=== PATIENT | female | born 1995 | race Caucasian/White ===

== ENCOUNTER 2022-01-03 13:16 | Emergency (ER) | payer OTHER, SELFPAY ==
[2022-01-03 15:47] VITALS: BP 156/95; PULSE 93; RESP 18; TEMP 37.2; O2SAT 97; BMI 45.7
--- NOTE | 2022-01-03 17:23 | ED.GENADULT ---
HPI - General Adult General Chief complaint: General Medical Stated complaint: depression Time Seen by Provider: 01/03/22 16:59 Source: patient Mode of arrival: ambulatory Limitations: no limitations History of Present Illness HPI narrative: 26 y/o female with history of depression on citalopram for the last 1.5 years who presents to the ER for evaluation of worsening depression for the last few weeks. She states she is starting to feel physical symptoms and manifestations from her depression and stress like extreme fatigue, migraine headache and she is starting to scratch her arms until she bleeds. She lost her mother at age 9 and coped in a similar way with the arm scratching. She says she slept 20 hours yesterday and could not get out of bed. She did not go to work the last 2 days because of her depression. 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 She is not suicidal or homocidal. Denies any auditory hallucination or visual hallucinations. MD complaint: depression Onset (ago): week(s) Location: left and upper extremity Radiation: non-radiation Severity: moderate Severity scale (1-10): 5 Quality: aching and sharp Pain Consistency: intermittent Relieving factors: rest Exacerbating factors: movement Associated symptoms: denies other symptoms Treatments prior to arrival: none Related Data Allergies Allergy/AdvReac Type Severity Reaction Status Date / Time No Known Allergies Allergy Verified 01/03/22 15:47 Review of Systems Review of Systems: Constitutional: No Fever, No Chills ENT/Mouth: No sore throat, No Rhinorrhea, No Swallowing Difficulty Eyes: No Eye Pain, No Swelling, No Redness Cardiovascular: No Chest Pain, No SOB, No Orthopnea, No Edema Respiratory: No Cough, No Sputum, No Wheezing, No dyspnea Gastrointestinal: No Nausea, No Vomiting, No Diarrhea, No abdominal Pain Musculoskeletal: No joint pain, No Myalgias Skin: No Skin Lesions, No rash Neuro: No Weakness, No Numbness, No Dizziness, No Headache Psych: No Anxiety/Panic, No Depression Heme/Lymph: No Bruising, No Lymphadenopathy Endocrine: No Polyuria, No Polydipsia PMFSH Social History Social History Advance Directives: No Advance Directives Information Provided: No Physical Exam ED Vital Signs: Vital Signs - 24 hr 01/03/22 15:47 Temperature 98.9 F Pulse Rate 93 Respiratory Rate 18 Blood Pressure 156/95 H Pulse Oximetry 97 Oxygen Delivery Method Room Air BMI result Body Mass Index 45.7 Course Course Course Narrative: 26-year-old female with history of depression presents to the ER with worsening symptoms for last 3-4 weeks. She is sleeping more and having physical manifestations of depression such as headaches and body aches. She has no suicidal or homicidal ideation. She has a supportive her fiance and younger sister. She is struggling and coping with the fact that she lost both of her parents and has minimal family. She has significant stressors at work. Will have crisis team evaluate her once medically cleared. Will rule out COVID and flu. Reevaluation(s) Reevaluation #1: Lab workup was unremarkable. COVID and flu were negative. 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 The best way for her to get access to a psychiatrist is through the partial program. She is worried about her work. She does have sick days she can use. Given she is low risk anticipate she will not require significant amount of time and partial. This was discussed with the patient and will provide a work note to ease her mind. She follow-up with her PCP as scheduled early January and her therapist tomorrow. She is stable for discharge home. Medical Decision Making Lab Data Result diagrams: 01/03/22 17:21 01/03/22 17:21 Labs: Lab Results 01/03/22 01/03/22 01/03/22 Range/Units 17:20 17:21 17:21 WBC 8.0 (4.8-10.8) X10*3/uL RBC 4.63 (4.20-5.50) X10*6/uL Hgb 13.9 (12.0-16.0) g/dl Hct 42.2 (37.0-47.0) % MCV 91.1 (80.0-98.0) fL MCH 30.0 (27.0-33.0) pg MCHC 32.9 (31.0-35.0) g/dl RDW 13.1 (11.0-16.0) % Plt Count 234 (160-400) X10*3/uL MPV 11.4 (9.4-12.3) fL Immature Gran % (Auto) 0.2 (0.0-0.4) % Neut % (Auto) 66.3 (45-73) % Lymph % (Auto) 23.6 (20-40) % [place] % (Auto) 7.4 (2-11) % Eos % (Auto) 2.0 (0-4) % Baso % (Auto) 0.5 (0-2) % Lymph # (Auto) 1.9 (1.2-4.9) X10*3/uL [place] # (Auto) 0.6 (0.1-1.2) X10*3/uL Eos # (Auto) 0.2 (0.0-0.4) X10*3/uL Baso # (Auto) 0.0 (0.0-0.2) X10*3/uL Abs Immat Gran (auto) 0.02 (0.00-0.03) X10*3/uL Absolute Neuts (auto) 5.3 (2.0-8.3) x10*3/uL Absolute Nucleated RBC 0.000 (0.0-0.012) X10*3/uL Nucleated RBC % (auto) 0.0 (0.0-0.2) /100WBC Sodium 137 (135-145) mmol/L Potassium 3.7 (3.3-5.1) mmol/L Chloride 102 (96-108) mmol/L Carbon Dioxide 23 (22-29) mmol/L Anion Gap 16 (12-20) BUN 10 (9-16) mg/dL Creatinine 0.77 (0.5-1.4) mg/dL Estim Creat Clear Calc 129.5 Estimated GFR > 60 Random Glucose 199 H (60-115) mg/dL Calcium 9.3 (8.4-10.2) mg/dL Total Bilirubin 0.2 (0.0-1.0) mg/dL Direct Bilirubin < 0.2 (0.0-0.5) mg/dL AST 26 (5-31) U/L ALT 22 (0-31) U/L Alkaline Phosphatase 41 (39-117) U/L Total Protein 7.1 (6.5-8.0) g/dL Albumin 4.0 (3.5-5.0) g/dL Lipase 36 (8-78) U/L Urine Color Urine Appearance Urine pH (5.0-9.0) Ur Specific [place] (1.005-1.025) Urine Protein (Neg-Trace) mg/dL Urine Glucose (UA) (Negative) mg/dL Urine Ketones (Negative) mg/dL Urine Blood (Negative) Urine Nitrite (Negative) Ur Leukocyte Esterase (Negative) Urine RBC (0-2) /HPF Urine WBC (0-5) /HPF Ur Squamous Epith Cells (0-2) /HPF Urine Bacteria (None Seen) Hyaline Casts (0-2) /LPF Urine Test (NEGATIVE) Urine Opiates Screen (Not Detect) Urine Fentanyl Screen (Not Detect) Ur Barbiturates Screen (Not Detect) Ur Phencyclidine Scrn (Not Detect) Ur Amphetamines Screen (Not Detect) U Benzodiazepines Scrn (Not Detect) Urine Cocaine Screen (Not Detect) U Marijuana (THC) Screen (Not Detect) Ethyl Alcohol < 10 mg/dL COVID-19 ([facility]) (Negative) COVID-19 Clin Com Influenza Type A ([facility]) (Negative) Influenza Type B ([facility]) (Negative) Influenza A & B Note 01/03/22 01/03/22 01/03/22 Range/Units 17:21 17:21 17:22 WBC (4.8-10.8) X10*3/uL RBC (4.20-5.50) X10*6/uL Hgb (12.0-16.0) g/dl Hct (37.0-47.0) % MCV (80.0-98.0) fL MCH (27.0-33.0) pg MCHC (31.0-35.0) g/dl RDW (11.0-16.0) % Plt Count (160-400) X10*3/uL MPV (9.4-12.3) fL Immature Gran % (Auto) (0.0-0.4) % Neut % (Auto) (45-73) % Lymph % (Auto) (20-40) % [place] % (Auto) (2-11) % Eos % (Auto) (0-4) % Baso % (Auto) (0-2) % Lymph # (Auto) (1.2-4.9) X10*3/uL [place] # (Auto) (0.1-1.2) X10*3/uL Eos # (Auto) (0.0-0.4) X10*3/uL Baso # (Auto) (0.0-0.2) X10*3/uL Abs Immat Gran (auto) (0.00-0.03) X10*3/uL Absolute Neuts (auto) (2.0-8.3) x10*3/uL Absolute Nucleated RBC (0.0-0.012) X10*3/uL Nucleated RBC % (auto) (0.0-0.2) /100WBC Sodium (135-145) mmol/L Potassium (3.3-5.1) mmol/L Chloride (96-108) mmol/L Carbon Dioxide (22-29) mmol/L Anion Gap (12-20) BUN (9-16) mg/dL Creatinine (0.5-1.4) mg/dL Estim Creat Clear Calc Estimated GFR Random Glucose (60-115) mg/dL Calcium (8.4-10.2) mg/dL Total Bilirubin (0.0-1.0) mg/dL Direct Bilirubin (0.0-0.5) mg/dL AST (5-31) U/L ALT (0-31) U/L Alkaline Phosphatase (39-117) U/L Total Protein (6.5-8.0) g/dL Albumin (3.5-5.0) g/dL Lipase (8-78) U/L Urine Color Yellow Urine Appearance Clear Urine pH 6.0 (5.0-9.0) Ur Specific [place] 1.025 (1.005-1.025) Urine Protein Negative (Neg-Trace) mg/dL Urine Glucose (UA) >=1000 H (Negative) mg/dL Urine Ketones Trace (Negative) mg/dL Urine Blood Negative (Negative) Urine Nitrite Negative (Negative) Ur Leukocyte Esterase Trace H (Negative) Urine RBC 0-2 (0-2) /HPF Urine WBC 6-10 H (0-5) /HPF Ur Squamous Epith Cells 0-2 (0-2) /HPF Urine Bacteria 2+ (None Seen) Hyaline Casts 0-2 (0-2) /LPF Urine Test (NEGATIVE) Urine Opiates Screen (Not Detect) Urine Fentanyl Screen (Not Detect) Ur Barbiturates Screen (Not Detect) Ur Phencyclidine Scrn (Not Detect) Ur Amphetamines Screen (Not Detect) U Benzodiazepines Scrn (Not Detect) Urine Cocaine Screen (Not Detect) U Marijuana (THC) Screen (Not Detect) Ethyl Alcohol mg/dL COVID-19 ([facility]) Negative (Negative) COVID-19 Clin Com See Note Influenza Type A ([facility]) Negative (Negative) Influenza Type B ([facility]) Negative (Negative) Influenza A & B Note See Note 01/03/22 01/03/22 Range/Units 17:22 17:23 WBC (4.8-10.8) X10*3/uL RBC (4.20-5.50) X10*6/uL Hgb (12.0-16.0) g/dl Hct (37.0-47.0) % MCV (80.0-98.0) fL MCH (27.0-33.0) pg MCHC (31.0-35.0) g/dl RDW (11.0-16.0) % Plt Count (160-400) X10*3/uL MPV (9.4-12.3) fL Immature Gran % (Auto) (0.0-0.4) % Neut % (Auto) (45-73) % Lymph % (Auto) (20-40) % [place] % (Auto) (2-11) % Eos % (Auto) (0-4) % Baso % (Auto) (0-2) % Lymph # (Auto) (1.2-4.9) X10*3/uL [place] # (Auto) (0.1-1.2) X10*3/uL Eos # (Auto) (0.0-0.4) X10*3/uL Baso # (Auto) (0.0-0.2) X10*3/uL Abs Immat Gran (auto) (0.00-0.03) X10*3/uL Absolute Neuts (auto) (2.0-8.3) x10*3/uL Absolute Nucleated RBC (0.0-0.012) X10*3/uL Nucleated RBC % (auto) (0.0-0.2) /100WBC Sodium (135-145) mmol/L Potassium (3.3-5.1) mmol/L Chloride (96-108) mmol/L Carbon Dioxide (22-29) mmol/L Anion Gap (12-20) BUN (9-16) mg/dL Creatinine (0.5-1.4) mg/dL Estim Creat Clear Calc Estimated GFR Random Glucose (60-115) mg/dL Calcium (8.4-10.2) mg/dL Total Bilirubin (0.0-1.0) mg/dL Direct Bilirubin (0.0-0.5) mg/dL AST (5-31) U/L ALT (0-31) U/L Alkaline Phosphatase (39-117) U/L Total Protein (6.5-8.0) g/dL Albumin (3.5-5.0) g/dL Lipase (8-78) U/L Urine Color Urine Appearance Urine pH (5.0-9.0) Ur Specific [place] (1.005-1.025) Urine Protein (Neg-Trace) mg/dL Urine Glucose (UA) (Negative) mg/dL Urine Ketones (Negative) mg/dL Urine Blood (Negative) Urine Nitrite (Negative) Ur Leukocyte Esterase (Negative) Urine RBC (0-2) /HPF Urine WBC (0-5) /HPF Ur Squamous Epith Cells (0-2) /HPF Urine Bacteria (None Seen) Hyaline Casts (0-2) /LPF Urine Test NEGATIVE (NEGATIVE) Urine Opiates Screen Not Detected (Not Detect) Urine Fentanyl Screen Not Detected (Not Detect) Ur Barbiturates Screen Not Detected (Not Detect) Ur Phencyclidine Scrn Not Detected (Not Detect) Ur Amphetamines Screen Not Detected (Not Detect) U Benzodiazepines Scrn Not Detected (Not Detect) Urine Cocaine Screen Not Detected (Not Detect) U Marijuana (THC) Screen Not Detected (Not Detect) Ethyl Alcohol mg/dL COVID-19 ([facility]) (Negative) COVID-19 Clin Com Influenza Type A ([facility]) (Negative) Influenza Type B ([facility]) (Negative) Influenza A & B Note Discharge Plan Discharge Clinical Impression: Depression Patient Disposition: Home, Self-Care Instructions: Depression (ED) Additional Instructions: Your lab workup today was unremarkable. You tested negative for COVID-19 influenza A. Recommend Excedrin migraine or Motrin as needed for headaches. Recommend partial program for your depression. Recommend following up with her primary care doctor as scheduled and your therapy session tomorrow as scheduled. If you develop new or worsening symptoms call 911 or come back to the ER for further evaluation. Stand Alone Forms: Work/School Release
[2022-01-03 17:28] LABS: MANUAL DIFF FLAG NO
[2022-01-03 17:34] LABS: Appearance Urine Clear; Color Urine Yellow; Glucose Urine UA >=1000 mg/dL (Negative); Leukocyte Esterase Urine Trace (Negative); Nitrite Urine Negative (Negative); Specific Gravity - Urine 1.025 (1.005-1.025); UMIC TRIGGER UACC YES; Urine Blood Negative (Negative); Urine Ketones Trace mg/dL (Negative); Urine Protein Negative (Neg-Trace)
[2022-01-03 17:36] LABS: Bacteria Urine 2+ (None Seen); Hyaline Casts Urine 0-2 /LPF (0-2); RBC Urine 0-2 /HPF (0-2); Squamous Epithelial Cell Urine 0-2 /HPF (0-2); UACC Culture Trigger YES
[2022-01-03 17:37] LABS: Basophils Percent Auto 0.5 % (0-2); Eosinophils Absolute Auto 0.2 X10*3/uL (0.0-0.4); Hematocrit 42.2 % (37.0-47.0); Hemoglobin 13.9 g/dl (12.0-16.0); Imm Gran Abs Auto 0.02 X10*3/uL (0.00-0.03); Imm Gran Pct Auto 0.2 % (0.0-0.4); Lymphocytes Absolute Auto 1.9 X10*3/uL (1.2-4.9); Lymphocytes Percent Auto 23.6 % (20-40); Mean Corpuscular HGB Conc 32.9 g/dl (31.0-35.0); Mean Corpuscular Volume 91.1 fL (80.0-98.0); Mean Platelet Volume 11.4 fL (9.4-12.3); Monocytes Absolute Auto 0.6 X10*3/uL (0.1-1.2); Monocytes Percent Auto 7.4 % (2-11); Neutrophils Absolute Auto 5.3 x10*3/uL (2.0-8.3); Neutrophils Percent Auto 66.3 % (45-73); Platelet Count 234 X10*3/uL (160-400); Red Blood Count 4.63 X10*6/uL (4.20-5.50); Red Cell Distribution Width 13.1 % (11.0-16.0)
[2022-01-03 17:42] LABS: Ethanol < 10 mg/dL
[2022-01-03 17:44] LABS: UPreg QC Valid YES; Urine Pregnancy NEGATIVE (NEGATIVE)
[2022-01-03 17:44] LABS: Amphetamine Screen Urine Not Detected (Not Detect); Barbiturates, Urine Not Detected (Not Detect); Benzodiazepines Screen Urine Not Detected (Not Detect); Cannabinoid Screen Urine Not Detected (Not Detect); Cocaine Screen Urine Not Detected (Not Detect); Fentanyl, urine Not Detected (Not Detect); Opiate Screen Urine Not Detected (Not Detect); Phencyclidine Screen Urine Not Detected (Not Detect)
[2022-01-03 17:45] LABS: COVID-19 Test Negative (Negative); IDNOW Serial# 16C4AD1C; Influenza A Negative (Negative); Influenza B2 Negative (Negative)
[2022-01-03 17:46] LABS: Alanine Aminotransferase 22 U/L (0-31); Alkaline Phosphatase 41 U/L (39-117); Anion Gap 16 (12-20); Aspartate Amino Transferase 26 U/L (5-31); Bilirubin Direct < 0.2 mg/dL (0.0-0.5); Bilirubin Total 0.2 mg/dL (0.0-1.0); Blood Urea Nitrogen 10 mg/dL (9-16); Calcium 9.3 mg/dL (8.4-10.2); Carbon Dioxide 23 mmol/L (22-29); Chloride 102 mmol/L (96-108); Creatinine Clr Calc Pharmacy 129.5; Estimated Glomerular Filt Rate > 60; Glucose Random 199 mg/dL (60-115); Lipase 36 U/L (8-78); Potassium 3.7 mmol/L (3.3-5.1); Sodium 137 mmol/L (135-145); Total Protein 7.1 g/dL (6.5-8.0)
--- NOTE | 2022-01-03 21:05 | MHC.CARE ---
26 y/o female presented for depression.She is not suicidal or homocidal. Denies any auditory hallucination or visual hallucinations. Pt. reported over the last few weeks her depression has increased, her appetite has decreased, she has been more irritable and she is sleeping less. Pt. reported she slept for 20 hours yesterday. 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 Pt. reported her sister and fiance are her main supports. Her mom when she was 9 and her dad in Oct 2020. Pt. reported she didn't grieve her father's at the time and now with the anniversary of his , her mom's birthday (Nov.) their anniversary (Dec.) and her dad's birthday () she is feeling very overwhelmed. She reported her PCP has been prescribing citalopram and her next apt is in Jan. She reported she is taking 20MG and feels that it is not helpful. Pt. reported she has an apt to meet with her new therapist via telehealth tomorrow through [facility].Pt. agreed to a partial program. Dispo discussed with CHUCHO Aguirre and JUAN R Beckett.
--- NOTE | 2022-01-03 21:06 | MHC.CARE ---
[facility] partial referral form sent.
--- NOTE | 2022-07-25 15:15 | ED.GENADULT ---
HPI - General Adult General Chief complaint: General Medical Stated complaint: depression Time Seen by Provider: 01/03/22 16:59 Source: patient Mode of arrival: ambulatory Limitations: no limitations History of Present Illness Location: left and upper extremity Severity scale (1-10): 5 Quality: aching and sharp Relieving factors: rest Exacerbating factors: movement Associated symptoms: denies other symptoms Treatments prior to arrival: none Related Data Home Medications Medication Instructions Recorded Confirmed [id number] 01/11/22 Previous Rx's Medication Instructions Recorded hydroxyzine HCl 25 mg tablet 25 mg PO TID PRN anxiety #42 tabs 01/11/22 trazodone 50 mg tablet 50 mg PO BEDTIME PRN sleep #14 tabs 01/11/22 citalopram 40 mg tablet 40 mg PO DAILY 30 days #30 tabs 01/24/22 Allergies Allergy/AdvReac Type Severity Reaction Status Date / Time No Known Allergies Allergy Verified 01/03/22 15:47 [facility] Past Medical History Medical History Migraine Type II diabetes mellitus Social History Social History Household Members: Significant Other Patient Tobacco Use Status: Never used Tobacco Do you have thoughts of harming others: None Physical Exam ED Vital Signs: BMI result Body Mass Index 45.7 Medical Decision Making Lab Data 01/03/22 17:21 01/03/22 17:21 Labs: Lab Results 01/03/22 01/03/22 01/03/22 Range/Units 17:20 17:21 17:22 WBC 8.0 (4.8-10.8) X10*3/uL RBC 4.63 (4.20-5.50) X10*6/uL Hgb 13.9 (12.0-16.0) g/dl Hct 42.2 (37.0-47.0) % MCV 91.1 (80.0-98.0) fL MCH 30.0 (27.0-33.0) pg MCHC 32.9 (31.0-35.0) g/dl RDW 13.1 (11.0-16.0) % Plt Count 234 (160-400) X10*3/uL MPV 11.4 (9.4-12.3) fL Immature Gran % (Auto) 0.2 (0.0-0.4) % Neut % (Auto) 66.3 (45-73) % Lymph % (Auto) 23.6 (20-40) % [place] % (Auto) 7.4 (2-11) % Eos % (Auto) 2.0 (0-4) % Baso % (Auto) 0.5 (0-2) % Lymph # (Auto) 1.9 (1.2-4.9) X10*3/uL [place] # (Auto) 0.6 (0.1-1.2) X10*3/uL Eos # (Auto) 0.2 (0.0-0.4) X10*3/uL Baso # (Auto) 0.0 (0.0-0.2) X10*3/uL Abs Immat Gran (auto) 0.02 (0.00-0.03) X10*3/uL Absolute Neuts (auto) 5.3 (2.0-8.3) x10*3/uL Absolute Nucleated RBC 0.000 (0.0-0.012) X10*3/uL Nucleated RBC % (auto) 0.0 (0.0-0.2) /100WBC Sodium 137 (135-145) mmol/L Potassium 3.7 (3.3-5.1) mmol/L Chloride 102 (96-108) mmol/L Carbon Dioxide 23 (22-29) mmol/L Anion Gap 16 (12-20) BUN 10 (9-16) mg/dL Creatinine 0.77 (0.5-1.4) mg/dL Estim Creat Clear Calc 129.5 Estimated GFR > 60 Random Glucose 199 H (60-115) mg/dL Calcium 9.3 (8.4-10.2) mg/dL Total Bilirubin 0.2 (0.0-1.0) mg/dL Direct Bilirubin < 0.2 (0.0-0.5) mg/dL AST 26 (5-31) U/L ALT 22 (0-31) U/L Alkaline Phosphatase 41 (39-117) U/L Total Protein 7.1 (6.5-8.0) g/dL Albumin 4.0 (3.5-5.0) g/dL Lipase 36 (8-78) U/L Urine Color Yellow Urine Appearance Clear Urine pH 6.0 (5.0-9.0) Ur Specific [place] 1.025 (1.005-1.025) Urine Protein Negative (Neg-Trace) mg/dL Urine Glucose (UA) >=1000 H (Negative) mg/dL Urine Ketones Trace (Negative) mg/dL Urine Blood Negative (Negative) Urine Nitrite Negative (Negative) Ur Leukocyte Esterase Trace H (Negative) Urine RBC 0-2 (0-2) /HPF Urine WBC 6-10 H (0-5) /HPF Ur Squamous Epith Cells 0-2 (0-2) /HPF Urine Bacteria 2+ (None Seen) Hyaline Casts 0-2 (0-2) /LPF Urine Test NEGATIVE (NEGATIVE) Urine Opiates Screen (Not Detect) Urine Fentanyl Screen (Not Detect) Ur Barbiturates Screen (Not Detect) Ur Phencyclidine Scrn (Not Detect) Ur Amphetamines Screen (Not Detect) U Benzodiazepines Scrn (Not Detect) Urine Cocaine Screen (Not Detect) U Marijuana (THC) Screen (Not Detect) Ethyl Alcohol < 10 mg/dL COVID-19 ([facility]) Negative (Negative) COVID-19 Clin Com See Note Influenza Type A ([place]) Negative (Negative) Influenza Type B ([place]) Negative (Negative) Influenza A & B Note See Note 01/03/22 Range/Units 17:23 WBC (4.8-10.8) X10*3/uL RBC (4.20-5.50) X10*6/uL Hgb (12.0-16.0) g/dl Hct (37.0-47.0) % MCV (80.0-98.0) fL MCH (27.0-33.0) pg MCHC (31.0-35.0) g/dl RDW (11.0-16.0) % Plt Count (160-400) X10*3/uL MPV (9.4-12.3) fL Immature Gran % (Auto) (0.0-0.4) % Neut % (Auto) (45-73) % Lymph % (Auto) (20-40) % [place] % (Auto) (2-11) % Eos % (Auto) (0-4) % Baso % (Auto) (0-2) % Lymph # (Auto) (1.2-4.9) X10*3/uL [place] # (Auto) (0.1-1.2) X10*3/uL Eos # (Auto) (0.0-0.4) X10*3/uL Baso # (Auto) (0.0-0.2) X10*3/uL Abs Immat Gran (auto) (0.00-0.03) X10*3/uL Absolute Neuts (auto) (2.0-8.3) x10*3/uL Absolute Nucleated RBC (0.0-0.012) X10*3/uL Nucleated RBC % (auto) (0.0-0.2) /100WBC Sodium (135-145) mmol/L Potassium (3.3-5.1) mmol/L Chloride (96-108) mmol/L Carbon Dioxide (22-29) mmol/L Anion Gap (12-20) BUN (9-16) mg/dL Creatinine (0.5-1.4) mg/dL Estim Creat Clear Calc Estimated GFR Random Glucose (60-115) mg/dL Calcium (8.4-10.2) mg/dL Total Bilirubin (0.0-1.0) mg/dL Direct Bilirubin (0.0-0.5) mg/dL AST (5-31) U/L ALT (0-31) U/L Alkaline Phosphatase (39-117) U/L Total Protein (6.5-8.0) g/dL Albumin (3.5-5.0) g/dL Lipase (8-78) U/L Urine Color Urine Appearance Urine pH (5.0-9.0) Ur Specific [place] (1.005-1.025) Urine Protein (Neg-Trace) mg/dL Urine Glucose (UA) (Negative) mg/dL Urine Ketones (Negative) mg/dL Urine Blood (Negative) Urine Nitrite (Negative) Ur Leukocyte Esterase (Negative) Urine RBC (0-2) /HPF Urine WBC (0-5) /HPF Ur Squamous Epith Cells (0-2) /HPF Urine Bacteria (None Seen) Hyaline Casts (0-2) /LPF Urine Test (NEGATIVE) Urine Opiates Screen Not Detected (Not Detect) Urine Fentanyl Screen Not Detected (Not Detect) Ur Barbiturates Screen Not Detected (Not Detect) Ur Phencyclidine Scrn Not Detected (Not Detect) Ur Amphetamines Screen Not Detected (Not Detect) U Benzodiazepines Scrn Not Detected (Not Detect) Urine Cocaine Screen Not Detected (Not Detect) U Marijuana (THC) Screen Not Detected (Not Detect) Ethyl Alcohol mg/dL COVID-19 ([facility]) (Negative) COVID-19 Clin Com Influenza Type A ([place]) (Negative) Influenza Type B ([place]) (Negative) Influenza A & B Note Discharge Plan Discharge Clinical Impression: Depression Patient Disposition: Home, Self-Care Instructions: Depression (ED) Additional Instructions: Your lab workup today was unremarkable. You tested negative for COVID-19 influenza A. Recommend Excedrin migraine or Motrin as needed for headaches. Recommend partial program for your depression. Recommend following up with her primary care doctor as scheduled and your therapy session tomorrow as scheduled. If you develop new or worsening symptoms call 911 or come back to the ER for further evaluation. Prescriptions: No Action [id number] hydroxyzine HCl 25 mg tablet 25 mg PO TID PRN (Reason: anxiety) Qty: 42 0RF trazodone 50 mg tablet 50 mg PO BEDTIME PRN (Reason: sleep) Qty: 14 0RF citalopram 40 mg tablet 40 mg PO DAILY 30 Days Qty: 30 0RF Stand Alone Forms: Work/School Release Interventions: ED Discharge Assessment Last Done: 01/03/22 20:54 Discharge Date/Time: 01/03/22 20:55
== END 2022-01-03 20:55 | disposition home or self-care (01) ==
PROVIDERS: Physician Assistant; Emergency Provider Student in an Organized Health Care Education/Training Program
DX: F32.A Depression, unspecified (principal); Z20.822 Contact with and (suspected) exposure to COVID-19; Z79.899 Other long term (current) drug therapy
CPT/HCPCS: 36415; 80053; 80307; 81001; 81025; 82077; 82248; 83690; 85025; 87086; 87147; 87502; 87635; 99283; 99284

== ENCOUNTER 2022-01-26 12:15 | Outpatient (RCR) | payer OTHER, SELFPAY ==
[2022-01-11 10:50] VITALS: BMI 44.1
[2022-01-11 12:05] VITALS: BP 122/80; PULSE 80; TEMP 35.8
--- NOTE | 2022-01-11 12:06 | PC.ADMIT ---
Patient is a 26 year old woman who has a fiance' whom she lives with. Patient reports struggling with depression sxs along with stress and anxiety. Reports she just starting processing the of her parents and is grieving their loss. Patient also reports work related stresses. Patient reports she is unable to work at this time d/t her mental health and is taking a leave of absence to attend [employer] and work on her mental health. 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 Patient reports her fiance' and sister are supportive. Patient is alert and oriented x4. Calm and cooperative. Presents with depressed mood, anxious affect. Reports passive SI reports feeling like a burden to her family. Denied plans or intent to kill herself. Patient given a copy of her safety plan if needed. Patient also reports dx of Type II diabetes which she is trying to manage with diet and exercise. She is not on any medications for diabetes at present. Patient stated she was trying to get a hold of a mainspring strip gauger. I gave her the number of [employer] and patient stated she would call to make an appointment.
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
--- NOTE | 2022-01-11 14:50 | HO.PHPIOP ---
Case opened in treatment team
[2022-01-12 09:05] LABS: Amphetamine Screen Urine Not Detected (Not Detect); Barbiturates, Urine Not Detected (Not Detect); Benzodiazepines Screen Urine Not Detected (Not Detect); Cannabinoid Screen Urine Not Detected (Not Detect); Cocaine Screen Urine Not Detected (Not Detect); Fentanyl, urine Not Detected (Not Detect); Opiate Screen Urine Not Detected (Not Detect); Phencyclidine Screen Urine Not Detected (Not Detect)
--- NOTE | 2022-01-17 13:19 | HO.PHPPROGNO ---
Subjective Subjective Date of Service: 01/17/22 Reason For Visit: depression,anxiety Medical Problems Affecting Mental Status: No Interim History: Describes mood as ?less anxious, less fidgety ?. Reports ?depression is evening out ?. Finding program helpful. No concerns regarding current medications. Has not been utilizing hydroxyzine/trazodone, as sleep has been improving, feeling less anxious. No SI, no safety concerns. Medication Compliance: Yes Side effects from medications: No Attending Groups: Yes Review of Systems Acute medical concerns: No Medical Review of Systems: unchanged Review of Systems Review of Systems Yes all other systems are reviewed and are negative Constitutional: Reports no additional constitutional complaints Mental Status Exam Mental Status Exam Narrative: NAD Patient Appearance: Appropriate Patient Orientation: Person, Place, Time and Situation Level of Consciousness: Appropriate Patient Behavior: Appropriate, Cooperative and Good Eye Contact Mood Description: Depressed (Reports ) and Anxious (Reports it is lessening) Affect Description: Appropriate (Brightens upon approach) Patient Cognition Impaired: No Ability to Follow Directions: Excellent Speech Pattern: Appropriate Memory Description: Intact Hallucinations: None Delusions: Not Present Thought Process: Intact Depressive Symptoms: Increased Anxiety, Difficulty Sleeping, Changes in Appetite, Loss of Int. in Activity, Feelings of Guilt, Unhappiness, Increased Fatigue and Difficulty Concentrating Judgement: Fair Diagnostics Vital Signs (24Hr): BMI result Body Mass Index 44.1 Assessment & Plan Assessment & Plan (1) Major depressive disorder, recurrent, moderate: Status: Acute Code(s): F33.1 - Major depressive disorder, recurrent, moderate Assessment and Plan: Describes mood as ?less anxious, less fidgety ?. Reports ?depression is evening out ?. Believes the increased dose citalopram is helping. Finding program helpful. Reports that the structure, being able to process feelings in group has been helpful. No concerns regarding current medications. Has not been utilizing hydroxyzine/trazodone, as sleep has been improving, feeling less anxious. Reviewed medication, she states she will use it if necessary, but has not found the need to do so at this time. No SI, no safety concerns. With given a 2 week supply of increased Celexa, does not need a refill at this time. (2) Generalized anxiety disorder: Status: Acute Code(s): F41.1 - Generalized anxiety disorder Plan 1. Continue with current [facility] plan of care. 2. Continue with current medication regimen as prescribed. 3. Follow-up as per protocol. Patient educated on: diagnosis, medication risk/benefits and therapeutic strategies Informed Consent: understands Reason for contiued partial hosp. stay Substantial Risk for: inability to function Certification I certify that partial hospital treatment is medically necessary due to the symptoms and problems resulting from the patient's mental illness and the failure to treat the patient at the partial hospital level of care would likely result in the patient requiring inpatient psychiatric care which could not be prevented at a less intensive level of care. I spent minutes with the patient and/or on the patient floor today, greater than?50% of which was spent counseling/coordinating care. Discharge Plan Discharge Attending provider: Johan Siddiqui Medications: New citalopram 40 mg tablet 40 mg PO DAILY Qty: 14 0RF hydroxyzine HCl 25 mg tablet 25 mg PO TID PRN (Reason: anxiety) Qty: 42 0RF trazodone 50 mg tablet 50 mg PO BEDTIME PRN (Reason: sleep) Qty: 14 0RF Discontinued citalopram 20 mg Tablet 20 mg PO DAILY No Action Koffi
--- NOTE | 2022-01-24 10:26 | HO.PHPPROGNO ---
Subjective Subjective Date of Service: 01/24/22 Reason For Visit: depression,anxiety Medical Problems Affecting Mental Status: No Interim History: Describes mood as ?good, more stable?, states much improvement regarding anxiety and depression symptoms. Last day is this coming Saturday, reports that she feels ready to be discharged later this week. Feels the increased citalopram dose is helping manage dep and anx sx. . Has not needed to use p.r.n. hydroxyzine or p.r.n. trazodone. No SI/HI, feels safe. Medication Compliance: Yes Side effects from medications: No Attending Groups: Yes Review of Systems Acute medical concerns: No Medical Review of Systems: unchanged Review of Systems Review of Systems Yes all other systems are reviewed and are negative Constitutional: Reports no additional constitutional complaints Mental Status Exam Mental Status Exam Narrative: NAD Patient Appearance: Appropriate Patient Orientation: Person, Place, Time and Situation Level of Consciousness: Appropriate Patient Behavior: Appropriate, Cooperative and Good Eye Contact Mood Description: Appropriate Affect Description: Appropriate, Depressed (Improving) and Anxious (Appears improving) Patient Cognition Impaired: No Ability to Follow Directions: Excellent Speech Pattern: Appropriate Memory Description: Intact Hallucinations: None Delusions: Not Present Thought Process: Intact Depressive Symptoms: Increased Anxiety Judgement: Good Diagnostics Vital Signs (24Hr): BMI result Body Mass Index 44.1 Assessment & Plan Assessment & Plan (1) Major depressive disorder, recurrent, moderate: Status: Acute Code(s): F33.1 - Major depressive disorder, recurrent, moderate Assessment and Plan: Describes mood as ?good, more stable?, states much improvement regarding anxiety and depression symptoms. Last day is this coming Saturday, reports that she feels ready to be discharged later this week. Returns to work on Saturday, continues with some anxiety regarding this. Feels the increased citalopram dose is helping manage dep and anx sx. Would like to continue on the 40 mg dose at this time. Prescription sent. Has not needed to use p.r.n. hydroxyzine or p.r.n. trazodone. We discussed use of both medication, recommended trial of them prior to returning to work, especially regarding concerns of any type of sedation. She stated that she would try them over the weekend. Sees new provider on February 15, does not need refills of either of these. No SI/HI, feels safe. (2) Generalized anxiety disorder: Status: Acute Code(s): F41.1 - Generalized anxiety disorder Assessment and Plan: Patient reports she has been practicing her new coping skills common finding them helpful in dealing with anxiety symptoms. Finding groups helpful in partial. Plan 1. Continue with current [facility] plan of care. 2. Continue with current medication regimen. 3. Patient to follow-up with outpatient providers after discharge from [facility] later this week. Patient educated on: diagnosis, medication risk/benefits and therapeutic strategies Informed Consent: understands Reason for contiued partial hosp. stay Substantial Risk for: inability to function Certification I certify that partial hospital treatment is medically necessary due to the symptoms and problems resulting from the patient's mental illness and the failure to treat the patient at the partial hospital level of care would likely result in the patient requiring inpatient psychiatric care which could not be prevented at a less intensive level of care. I spent minutes with the patient and/or on the patient floor today, greater than?50% of which was spent counseling/coordinating care. Discharge Plan Discharge Attending provider: Johan Siddiqui Medications: New hydroxyzine HCl 25 mg tablet 25 mg PO TID PRN (Reason: anxiety) Qty: 42 0RF trazodone 50 mg tablet 50 mg PO BEDTIME PRN (Reason: sleep) Qty: 14 0RF citalopram 40 mg tablet 40 mg PO DAILY 30 Days Qty: 30 0RF Discontinued citalopram 20 mg Tablet 20 mg PO DAILY No Action K[facility]i Stand Alone Forms: Patient Portal Discharge page
--- NOTE | 2022-01-24 16:22 | PC.NURSE ---
Patient reports she had an appointment with a individual small group instructor at [employer] that went well and she has another upcoming f/u appointment as she is working on her diet in regards to Diabetes Type II.
== END 2022-01-26 23:59 | disposition home or self-care (01) ==
LOC: HO.PHPA 12:15
PROVIDERS: Visit Provider Psychiatry & Neurology Psychiatry
DX: F33.1 Major depressive disorder, recurrent, moderate (principal); F41.1 Generalized anxiety disorder; Z79.899 Other long term (current) drug therapy
CPT/HCPCS: 80307; 90792; 90853